=== PATIENT | male | born 1945 | race Caucasian/White ===

== ENCOUNTER → 2016-11-09 | Outpatient (CLI) | payer MEDICARE, OTHER | LOC: RAD 09:22 | DX: R74.8 Abnormal levels of other serum enzymes (principal) ==

== ENCOUNTER 2019-08-01 18:35 | Emergency (ER) | payer MEDICARE, OTHER ==
[2019-08-01] MEDS ORDERED: LISINOPRIL10 MG PO (18:46)
[2019-08-01] MEDS ORDERED: HCTZ 25MG25 MG PO (18:46)
[2019-08-01] MEDS ORDERED: FISH OIL 1000MG1 CAP PO (18:47)
[2019-08-01 20:03] LABS: EOS # 0.2 (0.04-0.40); EOS % 2.4 % (0.0-4.0); HEMATOCRIT 39.6 % (42.0-52.0); HEMOGLOBIN 13.5 g/dL (13.5-18.0); LYMPH# 1.2 (1.50-4.00); MEAN CELL VOLUME 95 fl (78-100); MEAN CORPUSCULAR HEMOGLOBIN 32 pg (27-31); MEAN CORPUSCULAR HGB CONC 34 g/dL (33-37); MEAN PLATELET VOLUME 10.2 fl (7.4-10.4); MONO # 0.6 (0.20-0.80); NEU # 4.6 (1.40-6.50); PLATELET COUNT 161 K/mm3 (130-400); RED BLOOD COUNT 4.19 M/mm3 (4.20-5.60); RED CELL DISTRIBUTION WIDTH 12.9 % (11.5-14.5); WHITE BLOOD COUNT 6.6 K/mm3 (4.8-10.8)
[2019-08-01 20:14] LABS: ALBUMIN 4.5 g/dL (3.4-4.8); POTASSIUM 3.8 mmol/L (3.5-5.1)
[2019-08-01 20:15] LABS: CALCIUM 9.4 mg/dL (8.3-10.5)
[2019-08-01 20:17] LABS: TOTAL PROTEIN 7.5 g/dL (6.2-8.1)
[2019-08-01 20:23] LABS: TOTAL BILIRUBIN 1.3 mg/dL (0.2-1.2)
[2019-08-01 20:24] LABS: URINE APPEARANCE CLEAR; URINE BILIRUBIN 1+ (NEGATIVE); URINE BLOOD NEGATIVE (NEGATIVE); URINE COLOR YELLOW; URINE GLUCOSE NEGATIVE (NEGATIVE); URINE KETONE NEGATIVE (NEGATIVE); URINE LEUKOCYTE ESTERASE NEGATIVE (NEGATIVE); URINE NITRATE NEGATIVE (NEGATIVE); URINE PROTEIN(semi-quant) NEGATIVE (NEGATIVE); URINE UROBILINOGEN NORMAL (NORMAL); URINE WBC 0-1 /hpf (0-3)
[2019-08-01] MEDS ORDERED: FLONASE ALLERG9.9 ML NS (20:43)
[2019-08-01] MEDS ORDERED: CLARITIN 1010 MG/TAB PO (20:43)
[2019-08-01 20:57] VITALS: BP 143/65
== END 2019-08-01 20:57 | disposition home or self-care (01) ==
LOC: ED 18:35
PROVIDERS: Physician Assistant
DX: R42 Dizziness and giddiness (principal); E86.0 Dehydration; T78.1XXA Other adverse food reactions, not elsewhere classified, initial encounter; J45.909 Unspecified asthma, uncomplicated; I10 Essential (primary) hypertension; E78.5 Hyperlipidemia, unspecified; Z87.891 Personal history of nicotine dependence; Z79.51 Long term (current) use of inhaled steroids